=== PATIENT | female | born 1995 | race Caucasian/White ===

== ENCOUNTER 2016-03-31 14:31 | Observation (INO) | payer SELFPAY ==
[2016-03-31] MEDS ORDERED: NS 1,000 ML IV ONE (14:51)
[2016-03-31 14:57] LABS: % IMMATURE GRANULYOCYTES 0.2 % (0.0-1.1); ABSOLUTE IMMATURE GRANULOCYTES 0.02 10^3/uL (0.00-0.10); ADD DIFF? NO; ADD MORPH? NO; ADD SCAN? NO; ATYPICAL LYMPHOCYTE FLAG 20 (0-99); FRAGMENT RBC FLAG 0 (0-99); HEMATOCRIT 38.6 % (38.0-47.0); HEMOGLOBIN 13.5 g/dL (12.6-16.3); LEFT SHIFT FLG 0 (0-99); LIPEMIA HEMOLYSIS FLAG 90 (0-99); MEAN CELL HEMOGLOBIN 34.1 pg (27.9-34.1); MEAN CELL VOLUME 97.5 fL (81.5-99.8); MEAN PLATELET VOLUME 9.7 fL (8.7-11.7); PLATELET CLUMPS FLAG 0 (0-99); PLATELET COUNT 281 10^3/uL (150-400); RED BLOOD CELL COUNT 3.96 10^6/uL (4.18-5.33); RED CELL DISTRIBUTION WIDTH 12.9 % (11.5-15.2)
--- NOTE | 2016-03-31 14:58 | EDPHY ---
H & P Time Seen by Provider: 03/31/16 14:42 HPI/ROS: CHIEF COMPLAINT: Seizure HISTORY OF PRESENT ILLNESS: 20-year-old female presents after a generalized seizure. She was sitting school with her counselor, when she fell backwards from a seated position and had a generalized seizure. She hit her head and was postictal after the episode. She now complains of a moderate headache. No neck pain. She had 1 prior seizure related to Xanax withdrawal several years ago. According to the patient, EKG was normal. She takes Adderall for attention deficit hyperactivity disorder, without recent change in dosing. REVIEW OF SYSTEMS: Constitutional: No fever, no chills Eyes: No visual changes ENT: No sore throat Respiratory: No cough, no shortness of breath Cardiac: No chest pain Gastrointestinal: No nausea, no vomiting, no abdominal pain Genitourinary: No hematuria, no dysuria Musculoskeletal: No leg pain or swelling Skin: No rash Neurological: no weakness Psychiatric: No depression Past Medical/Surgical History: Attention deficit hyperactivity disorder Social History: [employer] student Smoking Status: Current every day smoker Physical Exam: General Appearance: Alert, no distress Head: No swelling or tenderness Eyes: Pupils equal and round, no conjunctival pallor ENT, Mouth: Mucous membranes moist Neck: Normal inspection, no midline tenderness, range of motion without pain Respiratory: Lungs are clear to auscultation Cardiovascular: Regular rate and rhythm Gastrointestinal: Abdomen is soft and nontender Neurological: Alert, oriented x3, cranial nerves II through XII intact, motor 5 /5, sensory intact to light touch Skin: Warm and dry, no rash Extremities: Nontender, no pedal edema Psychiatric: Mood and affect normal Constitutional: Initial Vital Signs Temperature (C) 36.5 C 03/31/16 14:43 Heart Rate 96 03/31/16 14:43 Respiratory Rate 14 03/31/16 14:43 Blood Pressure 127/97 H 03/31/16 14:43 O2 Sat (%) 99 03/31/16 14:43 O2 Delivery Mode Room Air Allergies/Adverse Reactions: No Known Drug Allergies Allergy (Verified 03/31/16 15:38) Medical Decision Making - Diagnostics EKG Interpretation: EKG interpreted by me reveals normal sinus rhythm, rate 66, no ST or T segment changes. Imaging: CT scan of the brain read by the radiologist is normal. ED Course/Re-evaluation: This patient presents after a witnessed generalized seizure. She was asymptomatic throughout her emergency department stay. No recurrent seizure. Seizure precautions given. She will follow with Neurology as an outpatient. Differential Diagnosis: Differential diagnosis includes though it is not limited to status epilepticus, hypoglycemia, intracranial hemorrhage, CVA, benzodiazepine withdrawal, alcohol withdrawal, epilepsy. - Data Points Laboratory Results: Laboratory Results 03/31/16 14:40 03/31/16 14:40 03/31/16 03/31/16 15:12 14:40 WBC 9.78 H 10^3/uL (3.80-9.50) RBC 3.96 L 10^6/uL (4.18-5.33) Hgb 13.5 g/dL (12.6-16.3) Hct 38.6 % (38.0-47.0) MCV 97.5 fL (81.5-99.8) MCH 34.1 pg (27.9-34.1) MCHC 35.0 g/dL (32.4-36.7) RDW 12.9 % (11.5-15.2) Plt Count 281 10^3/uL (150-400) MPV 9.7 fL (8.7-11.7) Neut % (Auto) 68.1 % (39.3-74.2) Lymph % (Auto) 23.7 % (15.0-45.0) Baldwin % (Auto) 7.3 % (4.5-13.0) Eos % (Auto) 0.4 L % (0.6-7.6) Baso % (Auto) 0.3 % (0.3-1.7) Nucleat RBC Rel Count 0.0 % (0.0-0.2) Absolute Neuts (auto) 6.66 H 10^3/uL (1.70-6.50) Absolute Lymphs (auto) 2.32 10^3/uL (1.00-3.00) Absolute Monos (auto) 0.71 10^3/uL (0.30-0.80) Absolute Eos (auto) 0.04 10^3/uL (0.03-0.40) Absolute Basos (auto) 0.03 10^3/uL (0.02-0.10) Absolute Nucleated RBC 0.00 10^3/uL (0-0.01) Immature Gran % 0.2 % (0.0-1.1) Immature Gran # 0.02 10^3/uL (0.00-0.10) Sodium 139 mEq/L (134-144) Potassium 4.1 mEq/L (3.5-5.2) Chloride 103 mEq/L (97-110) Carbon Dioxide 15 L mEq/l (22-31) Anion Gap 21 mEq/L (8-16) BUN 10 mg/dL (7-23) Creatinine 0.9 mg/dL (0.6-1.0) Estimated GFR > 60 Glucose 101 H mg/dL (70-100) Calcium 9.5 mg/dL (8.5-10.4) Urine Test NEGATIVE Medications Given: Discontinued Medications Sodium Chloride (Ns) 1,000 mls @ 0 mls/hr IV ONCE ONE PRN Reason: Wide Open Stop: 03/31/16 14:52 Last Admin: 03/31/16 15:28 Dose: 1,000 mls Departure - Departure Disposition: Home, Routine, Self-Care Clinical Impression: New onset seizure Condition: Good Instructions: New-Onset Seizure in Adults (ED) Additional Instructions: Do not drive until you are cleared by a neurologist. Referrals: Garth Shore DO [Medical Doctor] - As per Instructions
[2016-03-31 15:13] LABS: ANION GAP 21 mEq/L (8-16); CALCIUM 9.5 mg/dL (8.5-10.4); CARBON DIOXIDE 15 mEq/l (22-31); CHLORIDE 103 mEq/L (97-110); CREATININE 0.9 mg/dL (0.6-1.0); GLOMERULAR FILTRATION RATE > 60; GLUCOSE 101 mg/dL (70-100); POTASSIUM 4.1 mEq/L (3.5-5.2); SODIUM 139 mEq/L (134-144)
--- NOTE | 2016-03-31 15:16 | CPEKG ---
Heart Rate: 66 RR Interval: 909 P-R Interval: 164 QRSD Interval: 86 QT Interval: 412 QTC Interval: 432 P Arma: 47 QRS Arma: 73 T Wave Arma: 77 EKG Severity - NORMAL ECG - EKG Impression: SINUS RHYTHM Electronically Signed By: Kati Queen 31-Mar-2016 17:31:16
--- NOTE | 2016-03-31 16:13 | CT ---
CT Head (Without Contrast) March 31, 2016 at 1554 hours. Indication: Head injury after seizure today.. Technique: 5 mm images were obtained of the head without contrast. Multiplanar reformation was perfor med. Dose reduction techniques were utilized. Findings: No evidence for intracranial mass, hemorrhage, or infarct. The ventricles, sulci, and ciste rns are within normal limits for the patient's age. No evidence for an extra-axial fluid collection. No evidence for skull fracture. Paranasal sinuses are clear. Impression: Normal. Comment: Case was discussed with Dr. Kati Queen. .
[2016-03-31] MEDS ORDERED: ONDANSETRON 4 MG/2 ML VIAL ONE (17:22)
[2016-03-31] MEDS ORDERED: levETIRAcetam 500 MG in NS 100 ML IV ONE (17:23)
[2016-03-31] MEDS ORDERED: ONDANSETRON 4 MG/2 ML VIAL IVP ONE (17:26)
[2016-03-31] MEDS ORDERED: ACETAMINOPHEN 325 MG TAB ONE (17:36)
[2016-03-31] MEDS ORDERED: ACETAMINOPHEN 325 MG TAB PO ONE (17:38)
[2016-03-31] MEDS ORDERED: ACETAMINOPHEN 325 MG TAB PO PRN (18:53)
[2016-03-31] MEDS ORDERED: ONDANSETRON 4 MG/2 ML VIAL IVP PRN (18:53)
[2016-03-31] MEDS ORDERED: PROMETHAZINE HCL 25 MG/ML INJ IVP PRN (18:53)
--- NOTE | 2016-03-31 19:28 | GHP ---
[f rep st] HISTORY AND PHYSICAL DATE OF ADMISSION: 03/31/2016 DATE OF EVALUATION: 03/31/2016 CHIEF COMPLAINT: Seizure. HISTORY: The patient is a 20-year-old female, who is a student at . She was talking to 1 of her t eachers after class, when suddenly she had acute onset of generalized tonic colonic seizure activity with full loss of consciousness. She fell to the floor and hit her head. She woke up in the ambulan ce. She was confused for a period of time in the ambulance, but eventually regained full consciousne ss. She now has a headache due to hitting her head. She was observed in the ER for a period of time and was actually discharged from the ER. While in e waiting room, she fell to the ground and had a 2nd witnessed tonic-colonic seizure, at which point, she was brought back in and is now being admitted for further observation. She had full bladder inc ontinence in the emergency room waiting room. She has had a seizure once before, a few months ago in [place] where she is from. At that time, she was using Xanax fairly heavily, and the seizure was attributed to Xanax withdrawal. Initially, she stated she did not use Xanax for the last 3 weeks, although later did admit to ongoing Xanax use twic e a week. She uses this recreationally, and does not have a doctor's prescription. PAST MEDICAL HISTORY: 1. Previous seizure secondary to Xanax withdrawal. 2. Attention deficit hyperactivity disorder. MEDICATIONS: Please see computer record for full detailed list. ALLERGIES: No known drug allergies. SOCIAL HISTORY: She does smoke a few cigarettes per day. She drinks alcohol 3 times a week, althoug h denies frequent bingeing. She uses Xanax recreationally approximately twice a week. She smokes ma rijuana daily. She is a student at studying journalism. Her parents are in [place]. REVIEW OF SYSTEMS: Complete review of systems obtained. Review of systems is negative regarding con stitutional, HEENT, GI, pulmonary, cardiovascular, , hematology, skin, musculoskeletal, endocrine, psychiatric except for positives as in HPI. FAMILY HISTORY: Negative for seizure disorder. PHYSICAL EXAMINATION: GENERAL: Well-developed, well-nourished female in no acute distress. VITAL S IGNS: Temperature is 36.2, pulse 86, blood pressure 136/94, saturating 92% on room air. EYES: Norm al conjunctivae. Pupils react to light. ENT: Normal ears and nose. Hearing intact. Normal lips a nd teeth. Oropharynx moist. NECK: Trachea midline. No thyromegaly. CHEST: Normal effort. LUNGS : Clear to auscultation bilaterally. CARDIOVASCULAR: Regular rhythm. No murmur. No lower extremi ty edema. ABDOMEN: Soft, nontender. No hepatosplenomegaly. SKIN: Warm, dry, intact. No rash. M USCULOSKELETAL: No cyanosis or clubbing. Strength 5/5 upper and lower extremities. NEUROLOGIC: Cr anial nerves intact. Normal sensation to light touch. PSYCHIATRIC: Alert and oriented x3. Normal affect. Normal judgment. Normal memory. LABORATORY DATA: White count 9.7, hematocrit 38.6, platelets 281. Sodium 139, potassium 4.1, chlori de 103, bicarbonate 15, BUN 10, creatinine 0.9, glucose 101. test is negative. EKG viewed by me. My personal interpretation is normal sinus rhythm. No ST or T-wave changes. Head CT is negative. This case was discussed with Dr. Kati Queen. She detailed to me the emergency room course, beny white details regarding witnessed seizure in the emergency room. ASSESSMENT/PLAN: 1. Seizure x2 today. She has decreased her Xanax use from previous; however, I wonder if this Xanax withdrawal may be an ongoing contributor. Neurology has been called, and Dr. Shore will see her in t he morning. He does recommend oral Keflex 500 mg p.o. twice daily. Could consider further imaging o f the brain with MRI; but will defer to Neurology. 2. Benzodiazepine abuse. I advised her strongly against any further Xanax use. 3. Attention deficit hyperactivity disorder. She has Adderall as needed. ADMISSION STATUS: 1. Will admit to observation, as I anticipate she will be able go home tomorrow if no further seizur e activity is witnessed. 2. Cor status is full. 3. DVT prophylaxis. She is very low risk, and I anticipate a short stay. /[id number]/MODL
[2016-03-31] MEDS: levETIRAcetam 500 MG TAB PO SCH (20:33)
[2016-03-31] MEDS: IBUPROFEN 600 MG TAB PO PRN (20:45)
[2016-03-31 23:00] LABS: PHENCYCLIDINE URINE BCH < 6 ng/ml (NEGATIVE)
[2016-03-31 23:22] LABS: TETRAHYDROCANNABINOL URINE > 800 ng/mL (NEGATIVE)
[2016-03-31 23:34] LABS: PHENCYCLIDINE URINE BCH NEGATIVE (NEGATIVE); TETRAHYDROCANNABINOL URINE > 800 ng/mL (NEGATIVE)
[2016-04-01 04:30] VITALS: RESP 16
[2016-04-01] MEDS: IBUPROFEN 600 MG TAB PO PRN (06:06)
[2016-04-01 07:21] VITALS: BP 97/57; PULSE 79; TEMP 97.5; O2SAT 93
[2016-04-01] MEDS ORDERED: FLUoxetine 20 MG CAP PO SCH (09:00)
[2016-04-01] MEDS: levETIRAcetam 500 MG TAB PO SCH (10:21)
--- NOTE | 2016-04-01 10:23 | PDDCSUM ---
Discharge Summary Discharge Summary: DISCHARGE SUMMARY NOTE DISCHARGE DIAGNOSES: # acute seizure, 2nd ever # polysubstance abuse with alcohol, cocaine, marijuana, Xanax CONSULTANTS: Dr. Shore of neurology PROCEDURES: CT scan of head, normal HOSPITAL COURSE SUMMARY: The patient was observed here in the hospital with no further seizure episodes and no neurologic abnormalities. There is no evidence of any other toxidrome from her abuse substances. There is no evidence of infection or other metabolic disorder. She had no fever, electrolyte abnormalities, dehydration, or other acute medical problems as a cause for her seizure. Her seizures were felt likely due to her substance abuse. She was seen by Dr. Shore from Neurology who recommended starting and continuing Keppra 500 mg twice daily and following up with him in clinic for ongoing monitoring and management of seizure disorder. At this time she is stable for discharge from hospital. Patient has been using Xanax, alcohol, cocaine, marijuana. I had extensive discussion with the patient about the risks of using these both short-term and long-term, both in terms her physical health as well as her general life outcomes. We discussed counseling and other therapies for substance abuse and the local resources available to her including the [facility] service. Her family are in her home state of [place], but she does have a number of sober friends at the [employer] that she can spend time with and that can be a support group for her. MEDICATION CHANGES: None FOLLOW-UP PLAN: -strongly recommended follow-up for substance abuse counseling at [facility] Greater than 35 minutes bedside and care coordination time today
--- NOTE | 2016-04-01 14:45 | GCON ---
[f rep st] CONSULTATION INPATIENT CONSULTATION NOTE DATE OF CONSULTATION: 04/01/2016 CHIEF COMPLAINT: Recurrent seizures. HISTORY OF PRESENT ILLNESS: Dr. Renetta Valencia of the hospitalist service consulted Neurology for ev aluation of the patient's seizure. Results of the evaluation were discussed with the hospitalist loss control manager, and the results were placed in the EMR for Dr. Valencia's review. This is a 20-year-old female who is a student at the [employer]. It was reported last she had a generalized seizure thought to be secondary to Xanax withdrawal. She reports she had an EEG and she thinks an MRI at the time in [place] which were unremarkable. She did well until 2016. At that point, she was apparently talking to one of her teachers when she suddenly fell down and had a witnessed generalized tonic-clonic seizure. She awoke, was fine, and was brought to the emergency room. She did well and was discharged; but upon leaving the emergency room, she had a 2nd witnessed generalized tonic-clonic seizure and was, hence, admitted for overnight observation. S he was also placed on Keppra 500 mg b.i.d. Since that time, she has had no further seizures and one day later feels completely back to normal. She does report that she uses significant alcohol. She s till uses Xanax and sometimes uses cocaine. I counseled her thoroughly that these could contribute t o a seizure disorder or may be the sole cause, and she plans on stopping these things. She reports s he does not currently drive. PAST MEDICAL HISTORY: Previous seizure secondary to Xanax withdrawal in 2016, attention deficit hype ractivity disorder. ALLERGIES: No known drug allergies. SOCIAL HISTORY: She is a student at the [employer]. Uses alcohol 3 times a week. She u ses Xanax recreationally, approximately twice a week. She smokes marijuana daily. Parents live in [facility]. FAMILY HISTORY: Mother alive and possibly an alcoholic. Negative for seizures. REVIEW OF SYSTEMS: A 10-point review of systems is negative except for what was placed in the HPI. PHYSICAL EXAM: VITAL SIGNS: Blood pressure is 97/57, heart rate 79, respirations 16, satting 93% on room air, temperature 36.4 degrees Celsius. GENERAL: No acute distress. EYES: Funduscopic exam c ould not visualize optic discs. LUNGS: Clear to auscultation bilaterally. No rhonchi or rales. HE ART: Regular rate and rhythm. No murmurs. No carotid bruits auscultated. NEUROLOGIC: Mental stat us: Alert and oriented to person, place, and date. Memory, attention, language, and fund of knowled ge all appear intact. Cranial nerves: Pupils equal, round, and reactive to light. Visual gómez fu ll to confrontation. Extraocular muscles intact. Bilateral face intact to sensation and motor movem ent. Hearing intact to conversation. Uvula raises symmetrically. Tongue protrudes midline. Traps 5/5 strength. Motor exam: Normal tone and strength in all 4 extremities. Sensory exam: All 4 extr emities intact to light touch. Reflexes: Bilateral biceps, brachioradialis, and patellar are 2/4. Coordination: Bilateral [id number], [id number], and rapid alternating movements are normal. G ait deferred. LABS: January 28, 2017: CBC with a white blood cell count of 9.78. Chemistry with a CO2 of 15 and glucose of 101. Urine test negative. U-tox positive for cocaine and marijuana. IMAGING: Head CT, March 31, 2016, normal. I personally visualized the study. ASSESSMENT: 1. Recurrent generalized seizure disorder: The patient's neurologic exam on March 31, 2016, is no rmal, and her head CT on March 31, 2016, is normal. I suspect she likely has an underlying predisp osition to have seizures, and that in conjunction with her frequent benzodiazepine, alcohol, and coca ine use likely causing her to have seizures. I think her risk of seizure is high enough to warrant a ntiepileptic medication at this time. I will continue Keppra 500 mg b.i.d. I have clearly counseled her that she should avoid all alcohol, benzodiazepine, and cocaine use as well as methamphetamines. 2. Frequent alcohol, benzodiazepine, and cocaine use. RECOMMENDATIONS: 1. I recommend complete alcohol, benzodiazepine, and cocaine cessation. 2. Seizure precautions. No driving until seizure-free for 3 months per [place] law. I have also recommended that she call [facility], where she has a license, to see if she requires any ad ditional driving restrictions. 3. Continue Keppra 500 mg twice daily. 4. Follow up at the neurology outpatient clinic in 6 weeks. We can consider the utility of repeat M RI or EEG at that time; but given she reports she had them before and they were unremarkable, I am do ubtful to repeat them at this time. No further neurologic workup needed. Neurology will sign off. The patient can be discharged at this time. /[id number]/MODL
== END 2016-04-01 13:52 | disposition home or self-care (01) ==
LOC: F1N 18:02
PROVIDERS: ADMIT Internal Medicine; ATTEND Internal Medicine
DX: G40.909 Epilepsy, unspecified, not intractable, without status epilepticus (principal); R51 Headache; F90.0 Attention-deficit hyperactivity disorder, predominantly inattentive type; F17.210 Nicotine dependence, cigarettes, uncomplicated; F19.90 Other psychoactive substance use, unspecified, uncomplicated; F12.90 Cannabis use, unspecified, uncomplicated; F14.90 Cocaine use, unspecified, uncomplicated; Z72.89 Other problems related to lifestyle
CPT/HCPCS: 80307; 96365; G0378; G0480; J1953; J2405

== ENCOUNTER 2016-04-21 14:21 | Emergency (ER) | payer BC ==
[2016-04-21 14:38] LABS: % IMMATURE GRANULYOCYTES 0.3 % (0.0-1.1); ABSOLUTE IMMATURE GRANULOCYTES 0.03 10^3/uL (0.00-0.10); ADD DIFF? NO; ADD MORPH? NO; ADD SCAN? NO; ATYPICAL LYMPHOCYTE FLAG 0 (0-99); FRAGMENT RBC FLAG 0 (0-99); HEMATOCRIT 42.6 % (38.0-47.0); HEMOGLOBIN 14.7 g/dL (12.6-16.3); LEFT SHIFT FLG 0 (0-99); LIPEMIA HEMOLYSIS FLAG 90 (0-99); MEAN CELL HEMOGLOBIN 33.4 pg (27.9-34.1); MEAN CELL HEMOGLOBIN CONCENTR. 34.5 g/dL (32.4-36.7); MEAN CELL VOLUME 96.8 fL (81.5-99.8); MEAN PLATELET VOLUME 9.4 fL (8.7-11.7); PLATELET CLUMPS FLAG 0 (0-99); PLATELET COUNT 317 10^3/uL (150-400); RED CELL DISTRIBUTION WIDTH 13.4 % (11.5-15.2)
[2016-04-21 15:01] LABS: ANION GAP 16 mEq/L (8-16); CARBON DIOXIDE 22 mEq/l (22-31); CHLORIDE 104 mEq/L (97-110); CREATININE 0.7 mg/dL (0.6-1.0); ETHANOL SERUM 102 mg/dL (0-10); GLOMERULAR FILTRATION RATE > 60; GLUCOSE 79 mg/dL (70-100); POTASSIUM 4.3 mEq/L (3.5-5.2); SALICYLATE < 1.0 mg/dL (2.0-20.0); SODIUM 142 mEq/L (134-144)
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
[2016-04-21 15:09] LABS: COLOR YELLOW; LEUKOCYTE ESTERASE,URINE 3+ (NEGATIVE); NITRITE,URINE NEGATIVE (NEGATIVE)
[2016-04-21 15:20] LABS: MUCUS TRACE /lpf (NONE-1+); RBC,URINE 50-182 /hpf (0-3); WBC,URINE 50-182 /hpf (0-3)
[2016-04-21] MEDS ORDERED: CEPHALEXIN 500 MG CAP PO ONE (15:39)
[2016-04-21] MEDS: CEPHALEXIN 500 MG CAP PO SCH (22:24)
[2016-04-22] MEDS: CEPHALEXIN 500 MG CAP PO SCH ×3 (00:06→12:14)
[2016-04-22] MEDS ORDERED: levETIRAcetam 500 MG TAB PO ONE (08:11)
[2016-04-22 08:22] VITALS: RESP 16; TEMP 97.9; O2SAT 97
[2016-04-22] MEDS ORDERED: FLUoxetine 20 MG CAP PO SCH (09:00)
[2016-04-22 13:10] VITALS: BP 138/75; PULSE 74
== END 2016-04-22 13:40 ==
DX: F19.10 Other psychoactive substance abuse, uncomplicated (principal); F33.2 Major depressive disorder, recurrent severe without psychotic features; R45.851 Suicidal ideations; F17.200 Nicotine dependence, unspecified, uncomplicated; N30.00 Acute cystitis without hematuria
CPT/HCPCS: 80305; G0480